=== PATIENT | male | born 1990 | race African-American/Black ===

== ENCOUNTER 2022-04-18 22:37 | Emergency (ER) | payer SELFPAY ==
[~2022-04-18] VITALS: Ht 185.4 cm; Wt 81.3 kg
--- NOTE | 2022-04-18 23:30 | PHYS DOC ---
Past History Past Medical History: STD Past Medical History History of epididymitis right testicle General Adult HPI: HPI: "..I have a swollen Rt. nut...it really painful...I had this before and they said it was epididymitis ..." Patient is a 31 year old male who presents with above hx and complaints right testicle and epididymis tenderness. Patient denies any trauma. Patient denies any penile discharge. Patient does state he has had previous STDs of chlamydia and gonorrhea. Patient estimates she has had 40+ lifetime sex partners. No history of HIV or immunosuppression. Did get his first COVID shot. Did not get a flu shot. Current sexual partner has no complaints of dysuria, or vaginal discharge. No recent travel. No specific ill contacts. Normally healthy. Review of Systems: Review of Systems: Constitutional: Denies fever or chills Eyes: Denies change in visual acuity HENT: Denies nasal congestion or sore throat Respiratory: Denies cough or shortness of breath Cardiovascular: Denies chest pain or edema GI: Denies abdominal pain, nausea, vomiting, bloody stools or diarrhea. Complains of right testicle pain : Denies dysuria Musculoskeletal: Denies back pain or joint pain Integument: Denies rash Neurologic: Denies headache, focal weakness or sensory changes Endocrine: Denies polyuria or polydipsia Lymphatic: Denies swollen glands Psychiatric: Denies depression or anxiety Family History: Family History: Noncontributory to presentation Current Medications: Current Meds: See nursing for home meds Allergies: Allergies: No known drug allergies Physical Exam: PE: Constitutional: Well developed, well nourished, no acute distress, non-toxic appearance. [] HENT: Normocephalic, atraumatic, bilateral external ears normal, oropharynx moist, no oral exudates, nose normal. [] Eyes: PERRLA, EOMI, conjunctiva normal, no discharge. [] Neck: Normal range of motion, no tenderness, supple, no stridor. [] Cardiovascular:Heart rate regular rhythm, no murmur [] Lungs & Thorax: Bilateral breath sounds equal with scattered wheezes auscultation [] Abdomen: Bowel sounds normal, soft, no tenderness, no masses, no pulsatile masses. Complains of right testicle pain and epididymis tenderness. No findings of inguinal hernia. No findings of femoral adenopathy. Pain appears to be localized to groin. Skin: Warm, dry, no erythema, no rash. [] Back: No tenderness, no CVA tenderness. [] Extremities: No tenderness, no cyanosis, no clubbing, ROM intact, no edema. No psoas sign. Neurologic: Alert and oriented X 3, normal motor function, normal sensory function, no focal deficits noted. [] Psychologic: Affect anxious, judgement normal, mood normal. [] EKG: EKG: [] Radiology/Procedures: Radiology/Procedures: [][address] [address] IMAGING REPORT Signed PATIENT: LUPE SERVIN MACCOUNT: [id number] : 1990 LOCATION: ER AGE: 31 SEX: M EXAM STATUS: REG ER ORD. PHYSICIAN: ISAAK ESTEBAN MD REASON: Severe Rt testicular pain PROCEDURE: TESTICULAR/SCROTUM US TESTICULAR: 04/18/2022 12:32 AM INDICATION: 31 years old Male. Severe right testicular pain COMPARISON: None. FINDINGS: Right: Testicle: Normal in echotexture without focal lesion. Size: 4.9 x 3.1 x 3.4 cm. Flow: Normal color Doppler flow pattern. Epididymis: Thickened with hyperemia Hydrocele: Small right hydrocele. Varicocele: None. Left: Testicle: Normal in echotexture without focal lesion. Size: 4.8 x 2.1 x 3.2 cm. Flow: Normal color Doppler flow pattern. Epididymis: Normal in size and echotexture without focal lesion. Hydrocele: None. Varicocele: None. IMPRESSION: Thickened right epididymis with hyperemia suggestive of epididymitis. Small right hydrocele. Electronically signed by: Noemy Scales MD (04/19/2022 1:21 AM) [facility] DICTATED AND SIGNED BY: NOEMY SCALES MD DATE: 04/19/22 0118 CC: ISAAK ESTEBAN MD; PCP,NO ~ Heart Score: C/O Chest Pain: N/A Risk Factors: Risk Factors: DM, Current or recent (<one month) smoker, HTN, HLP, family history of CAD, obesity. Risk Scores: Score 0 - 3: 2.5% MACE over next 6 weeks - Discharge Home Score 4 - 6: 20.3% MACE over next 6 weeks - Admit for Clinical Observation Score 7 - 10: 72.7% MACE over next 6 weeks - Early Invasive Strategies Course & Med Decision Making: Course & Med Decision Making Pertinent Labs and Imaging studies reviewed. (See chart for details) Pt.declined to provide urine sample. Patient did receive 1 g of Rocephin, 1 g of Zithromax, and 2 g of Flagyl with Zofran 8 mg. Patient follow-up urine cultures. Push fluids. Take Cipro 500 twice a day x 10 days. Tylenol and Ibuprofen for pain. Follow pending cultures. Consider follow up with Dr. Garcia urology. Impression: 1. Epididymitis right [] Dragon Disclaimer: Dragon Disclaimer: This electronic medical record was generated, in whole or in part, using a voice recognition dictation system. Departure Departure: Referrals: PCP,NO (PCP) Scripts Ciprofloxacin Hcl (CIPRO) 500 Mg Tablet 500 MG PO BID for epididmyitis for 10 Days, #20 TAB Prov: ISAAK ESTEBAN MD 04/19/22 Dragon Disclaimer This chart was dictated in whole or in part using Voice Recognition software in a busy, high-work load, and often noisy Emergency Department environment. It may contain unintended and wholly unrecognized errors or omissions. Dragon Disclaimer This chart was dictated in whole or in part using Voice Recognition software in a busy, high-work load, and often noisy Emergency Department environment. It may contain unintended and wholly unrecognized errors or omissions. ISAAK ESTEBAN MD April 18, 2022 23:30
[2022-04-18] MEDS ORDERED: MORPHINE SULFATE 10 MG/ML SYRINGE. SQ ONE (23:45)
[2022-04-19] MEDS ORDERED: cefTRIAXone IM 1 GM VIAL IM ONE (01:00)
[2022-04-19] MEDS ORDERED: KETOROLAC 60 MG/2 ML VIAL. IM ONE (01:00)
[2022-04-19] MEDS ORDERED: ONDANSETRON ODT 4 MG TAB.RAPDIS PO ONE (01:00)
[2022-04-19] MEDS ORDERED: metroNIDAZOLE 500 MG TABLET PO ONE (01:00)
[2022-04-19] MEDS ORDERED: AZITHROMYCIN 250 MG TABLET. PO ONE (01:00)
--- NOTE | 2022-04-19 01:23 | RAD ---
US TESTICULAR: 04/18/2022 12:32 AM INDICATION: 31 years old Male. Severe right testicular pain COMPARISON: None. FINDINGS: Right: Testicle: Normal in echotexture without focal lesion. Size: 4.9 x 3.1 x 3.4 cm. Flow: Normal color Doppler flow pattern. Epididymis: Thickened with hyperemia Hydrocele: Small right hydrocele. Varicocele: None. Left: Testicle: Normal in echotexture without focal lesion. Size: 4.8 x 2.1 x 3.2 cm. Flow: Normal color Doppler flow pattern. Epididymis: Normal in size and echotexture without focal lesion. Hydrocele: None. Varicocele: None. IMPRESSION: Thickened right epididymis with hyperemia suggestive of epididymitis. Small right hydrocele. Electronically signed by: Hanh Fischer MD (04/19/2022 1:21 AM) [facility]
[2022-04-19] MEDS ORDERED: CIPR500T94 PO (02:27)
[2022-04-19] MEDS ORDERED: CIPROFLOXACIN HCL 500 MG TABLET PO ONE (03:00)
[2022-04-19 04:03] VITALS: BP 133/75
== END 2022-04-19 04:05 | disposition home or self-care (01) ==
LOC: ER 22:37
DX: N45.1 Epididymitis (principal)
CPT/HCPCS: 76870; 96372; 99284; J0696; J1885; J2270; Q0162